=== PATIENT | male | born 1980 | race Native Hawaiian/Other Pacific Islander ===

== ENCOUNTER 2022-08-09 09:53 | Outpatient (CLI) | payer OTHER | END 2022-08-09 20:40 | disposition home or self-care (01) | LOC: RAD 09:53 | PROVIDERS: ATTEND Nurse Practitioner Family | DX: Z13.820 Encounter for screening for osteoporosis (principal); Q90.9 Down syndrome, unspecified; M81.8 Other osteoporosis without current pathological fracture ==